=== PATIENT | female | born 1960 | race Native Hawaiian/Other Pacific Islander ===

== ENCOUNTER 2019-10-17 09:31 | Inpatient (IN) | payer BC, OTHER ==
[~2019-10-17] VITALS: Ht 160 cm; Wt 44.0 kg
--- NOTE | 2019-10-17 09:31 | NUR ---
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 pt took own blood pressure at home and was high, pt and got very anxious about having stroke. while pt in bed, pt able to move all extremeties, speech clear, no neuro deficit. pt states that has had multiple of this fainting episodes at home and is being evaluated by pmd. pt was scheduled to follow up for cardiology consult.
[2019-10-17] MEDS ORDERED: IV NORMAL SALINE 1000 ML BAG IV ONE (10:00)
[2019-10-17 10:06] LABS: BASOPHILS # (AUTO) 0.1 K/uL (0.0-8.0); BASOPHILS % (AUTO) 1.1 % (0.0-2.0); EOSINOPHILS # (AUTO) 0.1 K/uL (0.0-0.7); HEMATOCRIT 39.1 % (31.2-41.9); HEMOGLOBIN 12.9 g/dL (10.9-14.3); LYMPHOCYTES # (AUTO) 1.3 K/uL (20.0-40.0); LYMPHOCYTES % (AUTO) 25.6 % (20.5-51.5); MEAN CORPUSCULAR HEMOGLOBIN 30.7 uug (24.7-32.8); MEAN CORPUSCULAR HGB CONC 33 g/dL (32.3-35.6); MEAN CORPUSCULAR VOLUME 93.1 fL (75.5-95.3); MONOCYTES # (AUTO) 0.4 K/uL (2.0-10.0); MONOCYTES % (AUTO) 7.2 % (0.0-11.0); NEUTROPHILS # (AUTO) 3.2 K/uL (1.8-8.9); NEUTROPHILS % (AUTO) 64.1 % (38.5-71.5); PLATELET COUNT (AUTO) 183 K/uL (179-408); WHITE BLOOD COUNT (AUTO) 5.1 K/uL (3.8-11.8)
--- NOTE | 2019-10-17 10:10 | NUR ---
pt requested to walk to bathroom. pt able to walk in steady gait.
[2019-10-17 10:17] LABS: CARBON DIOXIDE 22 mmol/L (21-32); CHLORIDE 102 mmol/L (98-107); CREATININE 0.9 mg/dL (0.6-1.3); GLUCOSE 138 mg/dL (74-106); POTASSIUM 3.2 mmol/L (3.5-5.1); UREA NITROGEN, BLOOD 16 mg/dL (7-18)
[2019-10-17 10:28] LABS: ALANINE AMINOTRANSFERASE 40 U/L (14-59); ALKALINE PHOSPHATASE 100 U/L (50-136); ASPARTATE AMINOTRANSFERASE 44 U/L (15-37); BILIRUBIN,DIRECT 0.1 mg/dL (0.0-0.2); BILIRUBIN,TOTAL 0.3 mg/dL (0.2-1.0); TOTAL PROTEIN, SERUM 8.9 g/dL (6.4-8.2)
[2019-10-17 10:33] LABS: ETHANOL < 3 MG/DL (0-0)
--- NOTE | 2019-10-17 10:53 | NUR ---
pt heart tarte increases to 122, last couple of minutes and comes back to baseline. pt very nervous. notified.
[2019-10-17 10:55] LABS: *BILIRUBIN,URIN NEGATIVE (NEGATIVE); *BLOOD, URINE NEGATIVE (NEGATIVE); *CLARITY,URINE CLEAR (CLEAR); *COLOR,URINE YELLOW (YELLOW); *KETONES,URINE NEGATIVE (NEGATIVE); *UROBILINOGEN,URINE 0.2 E.U./dl (NORMAL); LEUKOCYTE ESTERASE ,URINE NEGATIVE (NEGATIVE); NITRITE, URINE NEGATIVE (NEGATIVE); UGLUCOSE NEGATIVE (NEGATIVE)
[2019-10-17 11:07] LABS: *AMPHETAMINE, URINE NEGATIVE (NEGATIVE); *BARBITURATE, URINE NEGATIVE (NEGATIVE); *CANNABINOID, URINE NEGATIVE (NEGATIVE); *COCCAINE, URINE NEGATIVE (NEGATIVE); *OPIATE, URINE NEGATIVE (NEGATIVE); *PHENCYCLIDINE SCREEN,URINE NEGATIVE (NEGATIVE)
--- NOTE | 2019-10-17 11:37 | NUR ---
[facility] AND GAVE THE REQUESTED INFO.
[2019-10-17] MEDS ORDERED: POTASSIUM CHLORIDE 20 MEQ TAB.PRT.SR ONE ×2 (11:45→11:46)
[2019-10-17] MEDS ORDERED: POTASSIUM CHLORIDE 20 MEQ TAB.PRT.SR PO ONE (11:45)
--- NOTE | 2019-10-17 12:52 | NUR ---
Doctor from [place] on the line with [facility].
--- NOTE | 2019-10-17 13:10 | NUR ---
HOSPITAL LUNCH TRAY PROVIDED FOR PT.
--- NOTE | 2019-10-17 13:40 | NUR ---
RAVI CALLED BACK AGAIN UPDATING AGAIN THAT THE PT WILL EITHER GO TO [facility] OR [facility].
--- NOTE | 2019-10-17 14:30 | NUR ---
PER RAMSEY HADLEY, PT SHOULD BE ADMIITED HERE AND SAFETY SCIENTIST WILL CONTINIUE WORKING ON THE CASE
--- NOTE | 2019-10-17 14:41 | NUR ---
Spoke to Sameera from [facility] [ ] about their patient in ER. Explained to her that their transfer team had been informed and [facility] Informed her that the ER Poilcy to wait an hour or two for the placement if not we have to admit the patient to make room for more ER beds. So far it has been about 3 hours of waiting. She stated that she will email their transfer team so they can expidite the transfer. Addendum: 10/17/19 at 1446 by KRISTEN SANCHEZ CMG 13:57 Spoke to Sameera 14:37 Reached out to Salazar from [facility] about admitting the patient because they were given ample time to look for a bed to transfer her but no response as of now.
--- NOTE | 2019-10-17 15:00 | NUR ---
PT AGREED TO BE ADMITTED HERE.
--- NOTE | 2019-10-17 15:04 | NUR ---
PT TRANSFERED TO FLOOR IN STABLE CONDITION. PT AMBUALTED COUPLE OF TIME TO BATHROOM WITH STEADY GAIT.
[2019-10-17 15:41] VITALS: BP 157/89
--- NOTE | 2019-10-17 17:00 | NUR ---
Pt alert and oriented x 4. Pt denies any c/o dizziness. Tele SNR no ectopy noted. Call light is within reach. Skin intact.
--- NOTE | 2019-10-17 17:30 | NUR ---
Spoke with [facility] case management [phone], working on a possibility for patient to be transferred to their in network facility. Notified Dr Denis. Per Dr denis pt is ok to transfer pt to in network facility per [facility] insurance.
[2019-10-17] MEDS ORDERED: IV D5 1/2 NS 1000 ML 1,000 ML IV PRN (18:21)
[2019-10-17] MEDS ORDERED: Z GUARD REMEDY PASTE 57 GM TUBE TOP PRN (18:30)
[2019-10-17] MEDS ORDERED: ACETAMINOPHEN 325 MG TABLET PO PRN (18:30)
[2019-10-17] MEDS ORDERED: ONDANSETRON 4 MG/2 ML VIAL IV PRN (18:30)
[2019-10-17] MEDS ORDERED: HYDROCODONE/APAP 5-325MG TABLET PO PRN (18:30)
[2019-10-17] MEDS ORDERED: MAGNESIUM HYDROXIDE 30 ML LIQUID UDC PO PRN (18:30)
[2019-10-17] MEDS ORDERED: ZOLPIDEM 5 MG TABLET PO PRN (18:30)
--- NOTE | 2019-10-17 18:41 | NUR ---
Allyn correctional counselor/case manager [facility] insurance called that pt will be transferrred to [facility] [id number] [facility] [id number] at [id number]. Anna TRIMBLE to give report to [phone] [facility] via [facility] charlene LOGAN @ 830 pm. Allyn spoke with patient about the transfer
--- NOTE | 2019-10-17 19:20 | NUR ---
RECEIVED PT AWAKE, ALERT AND ORIENTEDX4. PT IN NO ACUTE DISTRESS. PT ON SINUS RHYTHM . SAFETY AND COMFORT PROVIDED. PT WITH FAMILY AT BEDSIDE. AWAITING FOR TRANSFER. WILL CONTINUE TO MONITOR.
--- NOTE | 2019-10-17 19:27 | NUR ---
CALLED DR. PERRY BECAUSE PT WANTS TO BE DISCHARGE AT HOME RATHER TO BE TRANSFERRED. DR. PAGE REPLIED PT NEEDS TO HAVE MORE PRESYNCOPAL EPISODES AND FOOT ROENTGENOLOGIST FOR 24 H. NOTIFY THE PT AND FAMILY. PT STABLE.
--- NOTE | 2019-10-17 19:34 | NUR ---
CALLED JUSTO FROM [facility] THAT PT DECIDED TO AMA.
--- NOTE | 2019-10-17 19:35 | NUR ---
PT CHANGED HER MIND FOR AMA AND WANTS TO BE TRANSFERRED. CALLED JUSTO TO NOTIFY PT WANTS TO BE TRANSFERRED.
--- NOTE | 2019-10-17 20:09 | NUR ---
CALLED [facility] FOR REPORT. GIVEN REPORT TO ELISABETH Escobedo RN. NURSE ELISABETH SAID TO DISCHARGE THE PT WITH IV ON. PT IN NO ACUTE DISTRESS. SAFETY PROVIDED. WILL CONTINUE TO MONITOR.
[2019-10-17 20:58] VITALS: BP 144/87
--- NOTE | 2019-10-17 22:40 | NUR ---
GIVEN REPORT TO JOSUÉ Mercado RN. PT WILL GO TO ROOM 308 AT [facility]. PT IN NO ACUTE DISTRESS. PT WA EDWIN BY DR. PAGE. WAITING FOR [facility] TO MATERIALS TECHNICIAN THE PT.
--- NOTE | 2019-10-17 23:25 | NUR ---
PT DISCHARGE VIA [facility]. [facility] TOOK THE PT. PT IN NO ACUTE DISTRESS. DISCHARGE PAPERS GIVEN TO CHANDU Oliveira PT VITAL SIGNS WITHIN NORMAL LIMIT. ID BAND TAKEN OFF. IV SITE STILL ON PER REQUEST BY RN IN [facility]. HEART MONITOR TAKEN OFF. PT STABLE.
[2019-10-18] MEDS ORDERED: ESCITALOPRAM OXALATE 10 MG TABLET PO SCH (09:00)
[2019-10-18] MEDS ORDERED: LOSARTAN POTASSIUM 50 MG TABLET PO SCH (09:00)
[2019-10-18] MEDS ORDERED: LEVOTHYROXINE SODIUM 75 MCG TABLET PO SCH (09:00)
[2019-10-18] MEDS ORDERED: METOPROLOL SUCCINATE XL 25 MG TAB.SR.24H PO SCH (09:00)
== END 2019-10-17 23:32 | disposition short-term general hospital (02) | DRG 74 ==
LOC: ER 09:31 → TELE3 14:48
PROVIDERS: ADMIT Student in an Organized Health Care Education/Training Program; ATTEND Student in an Organized Health Care Education/Training Program
DX: G90.8 Other disorders of autonomic nervous system (principal); E87.2 Acidosis; E87.6 Hypokalemia; I10 Essential (primary) hypertension; E03.9 Hypothyroidism, unspecified; Z79.899 Other long term (current) drug therapy; Z79.890 Hormone replacement therapy; R94.31 Abnormal electrocardiogram [ECG] [EKG]
CPT/HCPCS: 36415; 70450; 71045; 80307; 83605; 84443; 85025; 85730; 87040; 93005; A4663; G0378; G0480; J7030

== ENCOUNTER 2021-04-21 00:32 | Inpatient (IN) | payer OTHER ==
[~2021-04-21] VITALS: Ht 160 cm; Wt 59.0 kg
[~2021-04-21 00:32] MED LIST: ESCI10TA PO; LEVO75TA7 PO; METO-356 PO; OLME20TA13 PO
[2021-04-21] MEDS ORDERED: ONDANSETRON 4 MG/2 ML VIAL IV ONE (00:45)
[2021-04-21] MEDS ORDERED: GLUCAGON,HUMAN RECOMBINANT 1 MG VIAL IVP ONE ×2 (00:45→02:00)
--- NOTE | 2021-04-21 01:00 | NUR ---
Received report from ED propellant charge zone assembler Bill. SOB, nausea x 2 hours after eatting steak at [employer]. Several episodes emesis undigested food. EKG ST rate 130's HOB up,clear speech. Patient gave HX with other episodes with "stuck food" # 20 LAC SL.blood obtained sent to lab. Patient instructed to put finger in mouth,blow with good results Heart rate decrease 110's. Medicated as directed,HOB up,given comfort measure x 2. States "feeling better". spouse Bedside.
[2021-04-21 01:05] LABS: HEMATOCRIT 38.8 % (31.2-41.9); MEAN CORPUSCULAR VOLUME 92.9 fL (75.5-95.3); PLATELET COUNT (AUTO) 195 K/uL (179-408)
[2021-04-21] MEDS ORDERED: ESCI10TA PO (01:07)
[2021-04-21] MEDS ORDERED: AMLO2.5T4 PO (01:07)
[2021-04-21] MEDS ORDERED: METO25TA6 PO (01:07)
[2021-04-21] MEDS ORDERED: LEVO75TA7 PO (01:07)
[2021-04-21] MEDS ORDERED: ONDANSETRON 4 MG/2 ML VIAL ONE ×2 (01:14→03:20)
[2021-04-21 01:17] LABS: BILIRUBIN,DIRECT 0.1 mg/dL (0.0-0.2); BILIRUBIN,TOTAL 0.3 mg/dL (0.2-1.0); CREATININE 1.1 mg/dL (0.6-1.3); POTASSIUM 3.1 mmol/L (3.5-5.1); TOTAL PROTEIN, SERUM 9.1 g/dL (6.4-8.2)
[2021-04-21] MEDS ORDERED: GLUCAGON,HUMAN RECOMBINANT 1 MG VIAL ONE ×2 (01:17→02:45)
[2021-04-21] MEDS: POTASSIUM CHLORIDE 50 ML IV SCH ×3 (02:25→06:45)
[2021-04-21] MEDS ORDERED: POTASSIUM CHLORIDE 50 ML ONE ×5 (03:12→05:53)
--- NOTE | 2021-04-21 05:17 | NUR ---
Epic panel called MD Santos rutherford paged, pending call back.
--- NOTE | 2021-04-21 06:55 | NUR ---
Medicated as directed. Glugon 1 mg x 2 given Nursing artificial flowers supervisor supplied 2 nd dose.HOB in semi fowlers. BRP x 4 gait steady. Requesting juice. Advised to continue resting.Patient agrees.
[2021-04-21] MEDS ORDERED: ENALAPRILAT DIHYDRATE 1.25 MG/1 ML VIAL IV PRN (07:00)
[2021-04-21] MEDS ORDERED: POTASSIUM CHLORIDE 20 MEQ in IV D5 1/2 NS 1000 ML 1,000 ML IV PRN (07:00)
[2021-04-21] MEDS ORDERED: ONDANSETRON 4 MG/2 ML VIAL IV PRN (07:00)
[2021-04-21] MEDS ORDERED: MORPHINE SULFATE 2 MG/1 ML DISP.SYRIN IV PRN (07:00)
[2021-04-21] MEDS ORDERED: ACETAMINOPHEN 650 MG SUPP.RECT RC PRN (07:00)
[2021-04-21] MEDS ORDERED: PANTOPRAZOLE SODIUM 40 MG VIAL IV SCH (09:00)
--- NOTE | 2021-04-21 09:08 | NUR ---
PATIENT FEELS BETTER AND WANTS TO GO HOME. ASKS FOR HOT COFFEE TO TRY AND DRINK. SPOKE WITH PHYSICIAN AND OK TO GIVE. PATIENT TOLERATED HOT COFFEE, DOES NOT WANT FURTHER TESTING. PHYSICIAN NOTIFIED AND IS OK WITH PATIENT SIGNING AMA. PATIENT CALLED AND WILL CONSTRUCTION PROJECT COORDINATOR. PATIENT FINISHED CUP COFFEE, SIGN AMA FORM. PIV DC'D AND PATIENT WAS ESCORTED TO 'S CAR.
[2021-04-21 09:17] VITALS: BP 116/68
== END 2021-04-21 09:20 | disposition left against medical advice (07) | DRG 392 ==
LOC: ER 00:34 → TRANSITION 06:26
PROVIDERS: ADMIT Internal Medicine; ATTEND Internal Medicine
DX: K22.2 Esophageal obstruction (principal); E03.9 Hypothyroidism, unspecified; F32.9 Major depressive disorder, single episode, unspecified; F41.9 Anxiety disorder, unspecified; T18.128A Food in esophagus causing other injury, initial encounter; X58.XXXA Exposure to other specified factors, initial encounter; Y93.9 Activity, unspecified; Y92.009 Unspecified place in unspecified non-institutional (private) residence as the place of occurrence of the external cause; Z20.822 Contact with and (suspected) exposure to COVID-19
CPT/HCPCS: 36415; 70030-TC; 71045; 83690; 85025; 93005; A4663; G0378; J1610; J2405; J3480; J3490